=== PATIENT | female | born 1955 | race Caucasian/White ===

== ENCOUNTER 2018-11-16 08:42 | Outpatient (REF) | payer MEDICAID, SELFPAY ==
[2018-11-16 20:09] LABS: ALT 24 U/L (12-78); AST 13 U/L (15-37); Albumin 3.9 g/dL (3.4-5.0); Alkaline Phosphatase 70 U/L (46-116); Anion Gap 7.9 mmol/L (3-11); BUN 16 mg/dL (7-18); Bilirubin, Total 0.3 mg/dL (0.2-1.0); CO2 29.1 mmol/L (21.0-32.0); CREATININE 0.95 mg/dL (0.55-1.02); Calcium 9.4 mg/dL (8.5-10.1); Chloride 104 mmol/L (98-107); Cholesterol 147 mg/dL (50-200); Estimated GFR 59.41 (mL/min/1.73m2); Glucose 104 mg/dL (70-100); HDL Cholesterol 51 mg/dL (40-60); LDL CHOLESTEROL 71 mg/dL (<100); Potassium 4.6 mmol/L (3.5-5.1); Sodium 141 mmol/L (136-145); TSH 4.06 uIU/mL (0.358-3.74); Total Protein 7.2 g/dL (6.4-8.2); Triglyceride 166 mg/dL (30-150)
[2018-11-16 20:13] LABS: Hemoglobin A1C 6.1 % (4.5-6.2)
== END 2018-11-16 09:02 ==
LOC: NCHCN 08:42
PROVIDERS: PCP Internal Medicine; Visit Provider Nurse Practitioner Family
DX: I10 Essential (primary) hypertension (principal); E78.5 Hyperlipidemia, unspecified; E03.9 Hypothyroidism, unspecified
CPT/HCPCS: 80053; 80061; 83721; 83036; 84443

== ENCOUNTER 2019-05-04 02:40 | Outpatient (CLI) | payer MEDICAID, SELFPAY ==
--- NOTE | 2019-05-04 12:48 | DI.MAMMO_ITS ---
EXAM: MAMMO SCREENING CLINICAL HISTORY: SCREENING Z12.39. TECHNIQUE: Mammograms were interpreted according to the usual protocol including computer analysis w [employer] CAD system, tomosynthesis and C-view imaging. COMPARISON: Current examination compared with previous examinations including December 2017 FINDINGS: Breasts are of moderate density with fairly symmetrical distribution of fibroglandular tissue. No dom inant mass or clumped microcalcification is identified in either breast. Current examination compared with previous examinations including December 2017 and there has been no gross interval change in appear ance in comparison with the previous studies. IMPRESSION: No specific evidence of malignancy at this time. Routine screening examinations are suggested at year ly intervals in this age group according to the ACS/ACR guidelines. Category 1, breast density catego ry B. BI-RADS Cat 1 - Negative Breast Density - Category B - Scattered areas of fibroglandular density
== END 2019-05-04 03:00 ==
PROVIDERS: PCP Nurse Practitioner Family; Visit Provider Nurse Practitioner Family
DX: Z12.31 Encounter for screening mammogram for malignant neoplasm of breast (principal)
CPT/HCPCS: 77063; 77067

== ENCOUNTER 2020-05-15 08:57 | Outpatient (REF) | payer MEDICAID, SELFPAY ==
[2020-05-15 22:45] LABS: Anion Gap 5.9 mmol/L (3-11); BUN 12 mg/dL (7-18); CO2 29.1 mmol/L (21.0-32.0); CREATININE 0.83 mg/dL (0.55-1.02); Calcium 9.1 mg/dL (8.5-10.1); Chloride 106 mmol/L (98-107); Glucose 111 mg/dL (74-106); Potassium 4.4 mmol/L (3.5-5.1); Sodium 141 mmol/L (136-145); TSH (W/Ref FT4) 3.34 uIU/mL (0.36-3.74)
== END 2020-05-15 09:17 ==
LOC: NCHCN 08:57
PROVIDERS: PCP Nurse Practitioner Family; Visit Provider Nurse Practitioner Family
DX: E03.9 Hypothyroidism, unspecified (principal); I10 Essential (primary) hypertension
CPT/HCPCS: 80048; 84443

== ENCOUNTER 2020-11-13 09:21 | Outpatient (REF) | payer MEDICARE, MEDICAID, SELFPAY ==
[2020-11-13 15:18] LABS: BUN 13 mg/dL (7-18); Calcium 9.5 mg/dL (8.5-10.1); Calculated LDL 85 mg/dL (<100); Chloride 101 mmol/L (98-107); Cholesterol 152 mg/dL (<200); Estimated GFR 55.64 (mL/min/1.73m2); Glucose 111 mg/dL (74-106); HDL Cholesterol 44 mg/dL (40-60); Hemoglobin A1C 5.9 % (<5.7); Potassium 4.7 mmol/L (3.5-5.1); Sodium 138 mmol/L (136-145); Triglyceride 119 mg/dL (<150)
== END 2020-11-13 09:22 | disposition home or self-care (01) ==
LOC: NCHCN 09:21
PROVIDERS: PCP Nurse Practitioner Family; Visit Provider Nurse Practitioner Family
DX: R73.03 Prediabetes (principal); I10 Essential (primary) hypertension
CPT/HCPCS: 80048; 80061; 83036

== ENCOUNTER 2020-12-04 02:23 | Outpatient (CLI) | payer MEDICARE, MEDICAID, SELFPAY ==
--- NOTE | 2020-12-04 08:00 | DI.MAMMO_ITS ---
Exam(s) MAMMO SCREENING EXAM: MAMMO SCREENING CLINICAL HISTORY: SCREENING, Z12.39 TECHNIQUE: Bilateral full field digital CC and MLO mammographic images were obtained with 3D tomosyn thesis and utilizing computer aided detection (CAD). COMPARISON: Available for comparison. FINDINGS: Masses/Architectural Distortion: There is an asymmetry in the outer right breast on the craniocaudad view. There is also an asymmetry in the upper posterior right breast on the MLO view. Microcalcifications: No suspicious pleomorphic-type are seen. Skin Thickening/Nipple Retraction: None. IMPRESSION: 1. Two asymmetries in the right breast as described above. 2. Further evaluation with spot compression views is recommended. Ultrasound may be indicated at sean t time. BI-RADS Category 0 - Assessment Incomplete: Need additional imaging evaluation Breast Density - Category B - Scattered areas of fibroglandular density Breast density category C or D implies that the patient has dense breast tissue. Dense breast tissue is very common and is not abnormal but dense breast tissue can make it harder to find cancer on a ma mmogram. Also, dense breast tissue may increase their breast cancer risk. This information about the result of the mammogram report was provided to the patient to raise their awareness. Use this report when you speak with the patient about their risks for breast cancer, which includes their family hist ory. At that time, you may recommend for more screening tests (Ultrasound or MRI) as they might be us eful based on their risk. A negative radiographic report should not delay biopsy if a dominant or clinically suspicious mass is present. Up to ten percent of cancers are not identified on mammography. A negative report may reinforce clinical impression. Adenosis and dense breasts may obscure an underlying neoplasm. False positive reports average 6 to 10%. Patient will receive a letter notifying them of these results.
== END 2020-12-04 02:43 ==
PROVIDERS: PCP Nurse Practitioner Family; Visit Provider Nurse Practitioner Family
DX: Z12.31 Encounter for screening mammogram for malignant neoplasm of breast (principal); R92.8 Other abnormal and inconclusive findings on diagnostic imaging of breast
CPT/HCPCS: 77063; 77067

== ENCOUNTER 2020-12-06 04:37 | Outpatient (CLI) | payer MEDICARE, MEDICAID, SELFPAY ==
--- NOTE | 2020-12-06 | DI.MAMMO_ITS ---
Exam(s) MG MAMMO SCREEN CALL BACK UNI US BREAST RT LIMITED EXAM: MG MAMMO SCREEN CALL BACK UNI and U/S breast RT limited CLINICAL HISTORY: F/U MAMMO, TWO ASYMMETRIES RT BREAST. TECHNIQUE: Craniocaudal and mediolateral oblique Full Field Digital Mammography views of the right b reast with Computer Aided Diagnosis followed by Tomosynthesis and right breast ultrasound. COMPARISON: Priors available for comparison. FINDINGS: Mammography/Tomosynthesis: Masses/Architectural Distortion: The asymmetry in the outer right breast on the CC view is less promi nent. The asymmetry in the upper right breast on the MLO view is no longer visualized. No suspiciou s masses or areas of architectural distortion are identified. Microcalcifictions: No suspicious pleomorphic-type are seen. Skin Thickening/Nipple Retraction: None. Right breast US: Echotexture: Normal appearance of the glandular tissue. Shadowing: No suspicious foci. Cyst: None. Solid lesions: None seen. Ductal dilation: None. IMPRESSION: 1. No evidence of malignancy is noted. 2. A six-month follow-up right mammogram is recommended for re-evaluation. 3. The findings were discussed with the patient on the date of the examination. BI-RADS Category 3 - 6 month - Probably Benign Finding: Recommend follow-up imaging in 6 months Breast Density - Category B - Scattered areas of fibroglandular density Breast density Category C or D implies that the patient has dense breast tissue. Dense breast tissue can make it harder to find cancer on a mammogram. Dense breast tissue is also associated with an incr eased risk of breast cancer. This information about the result of the mammogram report was provided to the patient to raise their awareness. Use this report when you speak with the patient about their risks for breast cancer, which includes their family history. At that time, you may recommend additional screening tests (Ultrasoun d or MRI) as these tests may add significant information. A negative radiographic report should not delay biopsy if a dominant or clinically suspicious mass is present. Up to ten percent of cancers are not identified on mammography. A negative report may reinforce clinical impression. Adenosis and dense breasts may obscure an underlying neoplasm. False positive reports average 6 to 10%. Patient will receive a letter notifying them of these results.
== END 2020-12-06 04:57 ==
PROVIDERS: PCP Nurse Practitioner Family; Visit Provider Nurse Practitioner Family
DX: Z12.31 Encounter for screening mammogram for malignant neoplasm of breast (principal); R92.8 Other abnormal and inconclusive findings on diagnostic imaging of breast; N64.59 Other signs and symptoms in breast
CPT/HCPCS: 76642; 77063; 77067

== ENCOUNTER → 2021-01-22 10:22 | Outpatient (BNVA) | payer MEDICARE, MEDICAID, SELFPAY | PROVIDERS: PCP Nurse Practitioner Family; Referring Provider Nurse Practitioner Family; Visit Provider Surgery | DX: R19.5 Other fecal abnormalities (principal); I10 Essential (primary) hypertension | CPT/HCPCS: 99203; 99242 ==

== ENCOUNTER 2021-01-24 07:59 | Day surgery (SDC) | payer MEDICARE, MEDICAID, SELFPAY ==
[2021-01-24 08:12] VITALS: BP 140/86; PULSE 76; RESP 17; TEMP 36.8; O2SAT 98
--- NOTE | 2021-01-24 08:36 | COLE_ITS ---
Date of service: 01/24/21 Time of Service: 08:36 Colonoscopy Report Date of procedure: 01/24/21 Prep: Miralax/Dulcolax Retraction Time: 15 Procedure Description: After informed consent was obtained the patient was taken to the procedure room and placed in a left decubitous position. Monitors were applied and a time out was done. The patients name, date of , procedure, allergies to medications and metal in their body was reviewed. The patient was then sedated. Once sedated and comfortable a rectal exam was done. External exam was normal. Internal exam revealed a normal sphincter tone and no palpable ma sses. The scope was then introduced and retrofelexed. no internal hemorrhoids were identified. The scope was then advanced to the cecum without difficulty. The TI and appendiceal orifice were identified. The prep was good 15. The scope was then slowly retracted over 15 minutes back into the rectum. she does have diverticular disease that does extend all the way over to the right c olon. The majority of the diverticulum Are concentrated in the sigmoid colon and she does have severe diverticula with multiple and numerous pockets. There is no signs of bleeding or infection. She has 2 small polyps in the rectum 1 is a less than 5 mm flat polyp that is removed with cold cold forcep. The other is a 1 cm flat polyp that is removed with a hot polypectomy forcep. All specimen i s retrieved and no bleeding is noted. Random biopsies also done at 70 cm and in the rectum.. The patient was woken up and taken back to Same day surgery in stable condition. The patient tolerated the procedure well and there were no immediate complications. Follow up: The patient should follow up in 5 years - path pd, unless they develop changes in bowel habits or other new gastrointestinal complaints.
[2021-01-24] MEDS: Lactated Ringers 1,000 ML 80 ML IV (08:52)
[2021-01-24 09:02] LABS: Abs Immature Grans 0.02 10^3/uL (0.0-0.06); Absolute Basophil Count 0.02 10^3/uL (0.0-0.2); Absolute Eosinophil Count 0.17 10^3/uL (0.0-0.7); Absolute Lymphocyte Count 1.22 10^3/uL (1.2-3.4); Absolute Monocyte Count 0.51 10^3/uL (0.1-0.8); Basophils % 0.3; Eosinophils % 2.7; HCT 41.9 % (36.0-46.0); HGB 14.1 g/dL (11.2-15.7); Immature Grans % 0.3; Lymphocytes % 19.6; MCH 31.3 pg (27.0-33.0); MCHC 33.7 % (32.0-36.0); MCV 93.1 fL (80-95); MPV 9.3 fL (8.0-11.0); Monocytes % 8.2; Neutrophils % 68.9; Nucleated RBC 0 %; Platelet Count 231 10^3/uL (130-400); RDW 12.1 % (11.7-14.6); RDW-SD 41.4 fL; WBC 6.24 10^3/uL (4.4-10.8)
--- NOTE | 2021-01-24 09:16 | W.ANESPRE ---
General Info Date of Service Date Performed: 01/24/21 Height: 5 ft 4 in Weight: 81.5 kg Body Mass Index (BMI): 30.8 Surgical Procedure: Operation Date: 01/24/21 09:05 Proposed Procedures Side Surgeon p Colonoscopy POSSIBLE POLYPECTOMY Bertha Greer, Meds Allergies and Home Medications Allergies Allergy/AdvReac Type Severity Reaction Status Date / Time lisinopril AdvReac Intermediate cough Verified 01/24/21 08:21 niacin AdvReac Intermediate muscle Verified 01/24/21 08:21 aches Home Medication Medication Instructions Recorded ascorbic acid (vitamin C) [Vitamin 500 mg PO DAILY 12/07/12 C] rosuvastatin [Crestor] 20 mg PO DAILY 05/29/16 albuterol sulfate 90 mcg/actuation 2 puff INHALATION Q6H PRN 01/09/21 aerosol inhaler levothyroxine 75 mcg capsule 75 mcg PO DAILY 01/09/21 triamterene 37.5 1 cap PO DAILY 01/09/21 mg-hydrochlorothiazide 25 mg capsule bisacodyl 5 mg tablet,delayed 5 mg PO ONCE #4 tab 01/22/21 release polyethylene glycol 3350 17 238 g PO ONCE #238 g 01/22/21 gram/dose oral powder Current Visit Medications: Current Medications Generic Name Dose Route Start Last Admin Trade Name Freq PRN Reason Stop Dose Admin Hyoscyamine Sulfate 0.125 mg 01/23/21 14:22 Hyoscyamine 0.125 Mg Sl/Oral/Chew SL DIRECTED PRN Ringer's Solution 1,000 mls @ 80 mls/hr 01/24/21 06:00 01/24/21 08:52 IV 02/22/21 23:59 80 mls/hr INFUSION SHEELA Administration IV Miscellaneous Supplies 1 each 01/24/21 06:00 Iv Access IV 02/22/21 23:59 DIRECTED SHEELA Ondansetron HCl 4 mg 01/23/21 14:22 Ondansetron 4 Mg/2 Ml Vial IVP Q4H PRN PRN Nausea / Vomiting Sodium Chloride 0 ml 01/24/21 06:00 Normal Saline Flush 10 Ml Syr IV 02/22/21 23:59 PRN PRN Sodium Chloride 0 ml 01/24/21 06:00 Normal Saline 10 Ml Vial IJ 02/22/21 23:59 DIRECTED PRN Sterile Water 0 ml 01/24/21 06:00 Water,Injection,Sterile 10 Ml Vial IJ 02/22/21 23:59 DIRECTED PRN [facility] Medical History Medical History Abnormal mammogram of right breast Fecal occult blood test positive Hyperlipidemia Hypertension Hypothyroidism CABRERA (obstructive sleep apnea) Positive colorectal cancer screening using Cologuard test Prediabetes Surgical History Surgical History Ligation of fallopian tube 1985 Open Carpal Tunnel release Bilateral ? 2004 Tobacco Smoking/Tobacco Use Status: Former Tobacco Use Alcohol Alcohol Intake: never Substance Use Substance use: Never Substance use type: does not use Vital Signs and Lab Results Vital Signs Most Recent Vital Signs in EMR: Most Recent Vital Signs Temp Pulse Resp BP Pulse Ox 36.8 C 76 17 140/86 98 01/24/21 08:12 01/24/21 08:12 01/24/21 08:12 01/24/21 08:12 01/24/21 08:12 Lab Results Result Diagrams: 01/24/21 08:55 Blood Type / Crossmatch: No Data to Display Complete Blood Count: White Blood Count 6.24 10^3/uL (4.4-10.8) 01/24/21 08:55 01/24/21 Red Blood Count 4.50 10^6/uL (3.93-5.22) 01/24/21 08:55 01/24/21 Hemoglobin 14.1 g/dL (11.2-15.7) 01/24/21 08:55 01/24/21 Hematocrit 41.9 % (36.0-46.0) 01/24/21 08:55 01/24/21 Platelet Count 231 10^3/uL (130-400) 01/24/21 08:55 01/24/21 Complete Metabolic Panel: No Data to Display Liver Function Panel: No Data to Display Coagulation Panel: No Data to Display Cardiac Panel: No Data to Display Arterial Blood Gas: No Data to Display Venous Blood Gas: No Data to Display Pancreas Panel: No Data to Display Thyroid Panel: No Data to Display Infectious Disease: No Data to Display Blood Cultures: No Data to Display Toxicology Panel: No Data to Display Anesthesia Assessment and Plan Anesthesia History Personal History: No History of Anesthesia Complications Family History: No Family History of Anesthesia Complications Exercise Tolerance Exercise Tolerance: Metabolic Equivalents>4 Pertinent Negatives Pertinent Negatives: No Symptoms of GERD Cardiac & Pulmonary Exam Cardiac Exam: Normal S1/S2 Heart Sounds Pulmonary Exam: Clear Bilateral Breath Sounds Airway Exam Known Difficult Airway: No Mallampati Class: 2 Mouth Opening: Normal (> 3cm) Thyromental Distance: Less than 3 cm Neck Range of Motion: Full ROM Neck Circumference: Normal Teeth Condition: Edentulous ASA Classification ASA Score: ASA 2 Emergency Case?: No NPO Status NPO Status: NPO Clears >2 hours, Solids >8 hours Anesthesia Plan Resuscitation Status: Full Code Anesthesia Technique: General Anesthesia Airway Planned: Natural Airway Monitors Used: Standard Monitors
[2021-01-24 09:19] VITALS: BMI 30.8
[2021-01-24 10:10] VITALS: BP 126/75; PULSE 60; RESP 16; TEMP 36.3; O2SAT 96
--- NOTE | 2021-01-24 10:11 | PDOC.DSDIS_ITS ---
Discharge Plan Disposition Patient Disposition: HOME Condition: Good Discharge Details Reason For Visit: colon scope Attending Provider: Bretha Greer Primary Care Provider: Mira Colbert Home Meds and New Rx's Prescriptions: Continued ascorbic acid (vitamin C) [Vitamin C] 500 MG tablet 500 mg PO DAILY RF: 0 levothyroxine 75 mcg capsule 75 mcg PO DAILY RF: 0 albuterol sulfate [ProAir HFA] 90 mcg/actuation HFA aerosol inhaler 2 puff inhalation Q6H PRNRF: 0 triamterene-hydrochlorothiazid 37.5-25 mg capsule 1 cap PO DAILY RF: 0 rosuvastatin [Crestor] 20 MG tablet 20 mg PO DAILY RF: 0 Discontinued polyethylene glycol 3350 17 gram/dose powder 238 g PO ONCE Qty: 238 RF: 0 bisacodyl [Dulcolax (bisacodyl)] 5 mg tablet,delayed release (DR/EC) 5 mg PO ONCE Qty: 4 RF: 0 Discharge Instructions Additional Instructions: DSU Colonoscopy Post- Op Instructions Instructions for Everyone who is given Anesthesia: For your safety, please do the following for the next twenty-four (24) hours: *Do Not operate a motor vehicle (car, truck, motorcycle, etc.) *Do Not drink alcoholic beverages or use any recreational drugs for the first 24 hours or while taking pain medications. The medications in your body may have a reaction that can be dangerous. *Do Not make any important decisions or sign any important papers. Findings: severe diverticular Dx x1 polyp-we will send a letter in 3 to 4 weeks with the results pathology and we may want to repeat the colonoscopy Follow up: Probable repeat colonoscopy in 3 to 5 years time 1. No lifting over 20 pounds or strenuous activity for the first 24 hours after your procedure. After 24 hours there are no restrictions on your activity but you may feel fatigued for a few days. 2. After you arrive home you may have a light meal and return to your normal diet as you can tolerate it without feeling sick to your stomach. 3. You may have a bloated, gaseous feeling in your belly (abdomen) after a colonoscopy. Passing gas and belching will help. Walking or lying down on your left side with your knees flexed may relieve the discomfort. Call the office at [phone] (Office) or [phone] (Hospital) right away if you notice any of the following: a.Vomiting of blood or ?coffee ground stools?. b.Rectal bleeding 1Tbsp, blood clots or continuous bleeding. c.Severe belly (abdominal) pain. d.A hard distended belly (abdomen) and an inability to pass gas. 4. Please don?t expect to have a normal BM (bowel movement) for 2-3 days after your procedure. 5. If there are questions regarding the findings of your procedure, please contact your doctor 6. If you are unable to contact your doctor with a problem, contact the hospital at [phone]. 7. Continue all your regular medications unless directed otherwise. I understand the above instructions and have no questions. Signature of Patient or Adult Escort Name of Responsible Adult Escort Signature of Nurse Date/Time Stand Alone Forms: Anesthesia Discharge Inst. Activity:: see above Diet:: see above Discharge Orders Discharge Orders: Discharge Order (Routine); Ordered 01/23/21 Ordered By: Bertha Greer DS: Diagnosis Discharge Diagnosis (1) Diverticula of colon: Status: Acute (2) Adenomatous polyp of rectum: Status: Acute
--- NOTE | 2021-01-24 10:22 | W.ANESPOSTOP ---
Postoperative Evaluation Date, Time and Location Date Performed: 01/24/21 Time Performed: 10:22 Patient Location: Day Surgery Unit Vital Signs Most Recent Imported Vital Signs: Most Recent Vital Signs Temp Pulse Resp BP Pulse Ox 36.3 C L 60 16 126/75 96 01/24/21 10:10 01/24/21 10:10 01/24/21 10:10 01/24/21 10:10 01/24/21 10:10 Pain Score Most Recent Pain Score: Most Recent Pain Score Pain Level 0 01/24/21 10:10 Assessment Mental Status: Awake (Alert & Oriented to Patient Baseline) Airway and Respiratory Function: Patent airway with normal (patient baseline) respiratory exam Cardiovascular Function: Hemodynamically Stable Hydration Status: Adequately Hydrated Nausea & Vomiting: No Nausea or Vomiting Pain: Pt. Denies Any Pain Peripheral Nerve Block: Patient did not receive a nerve block
[2021-01-24 10:40] VITALS: BP 131/78; PULSE 72; RESP 15; TEMP 36.4; O2SAT 99
--- NOTE | 2021-01-24 10:56 | BOWEL_PTH ---
PATIENT: Eladia Beal LOC: [facility] U#:[id number] AGE/SX: 65/F ROOM: RE01/24/[address]: Bertha Greer : 1955 BED: DIS: 01/24/2021 SPEC #: [id number] RECD: 01/24/21 11:56 STATUS: JERRY REQ #: [id number] HAILE: 01/24/21 10:[address]: Bertha Greer DEPT: Surgical Specimen RECD BY: Kelly Cam ENTERED: 01/24/21 11:57 SP TYPE: Bowel OTHR DR: Mira Colbert Tissues: 1 - BIOPSY BOWEL 2 - BIOPSY BOWEL Procedures: GROSS AND MICRO LEVEL 4 Comments: [id number]
== END 2021-01-24 10:46 | disposition home or self-care (01) ==
PROVIDERS: PCP Nurse Practitioner Family; Visit Provider Surgery
PROC: 0DJD8ZZ Inspection of Lower Intestinal Tract, Via Natural or Artificial Opening Endoscopic (ICD-10-PCS; CPT 45378; principal; 2021-01-24 09:00)
DX: Z12.11 Encounter for screening for malignant neoplasm of colon (principal); K57.30 Diverticulosis of large intestine without perforation or abscess without bleeding; I10 Essential (primary) hypertension; G47.33 Obstructive sleep apnea (adult) (pediatric); K62.1 Rectal polyp
CPT/HCPCS: 45384; 45380; 88305; 85025

== ENCOUNTER 2021-05-14 12:14 | Outpatient (REF) | payer MEDICARE, MEDICAID, SELFPAY ==
[2021-05-14 21:33] LABS: Anion Gap 8.8 mmol/L (3-11); BUN 20 mg/dL (7-18); CO2 30.2 mmol/L (21.0-32.0); Calcium 9.3 mg/dL (8.5-10.1); Chloride 99 mmol/L (98-107); Estimated GFR 55.64 (mL/min/1.73m2); Glucose 119 mg/dL (74-106); Potassium 4.3 mmol/L (3.5-5.1); Sodium 138 mmol/L (136-145); TSH (W/Ref FT4) 2.91 uIU/mL (0.36-3.74)
== END 2021-05-14 12:15 | disposition home or self-care (01) ==
LOC: NCHCN 12:14
PROVIDERS: PCP Nurse Practitioner Family; Visit Provider Physician Assistant
DX: I10 Essential (primary) hypertension (principal)
CPT/HCPCS: 80048; 84443

== ENCOUNTER 2021-08-20 01:34 | Outpatient (CLI) | payer MEDICARE, MEDICAID, SELFPAY ==
--- NOTE | 2021-08-20 10:18 | DI.MAMMO_ITS ---
Exam(s) MG MAMMO DIAGNOSTIC UNI EXAM: MG MAMMO DIAGNOSTIC UNI CLINICAL HISTORY: 6-MO F/U ABNL MAMMO, RT BREAST TECHNIQUE: Mammograms were interpreted according to the usual protocol including computer analysis w ith CAD system, tomosynthesis and C-view imaging. COMPARISON: FINDINGS: Right breast mammogram was obtained to follow questionable area of asymmetric density seen on prior e xamination November 2020. There has been no interval change in appearance. No new mass or clumped microc alcification identified in the right breast. IMPRESSION: No specific evidence of malignancy at this time. I would suggest that routine screening examinations resume with a bilateral mammogram in 6 months. BI-RADS Category 3 - 6 month - Probably Benign Finding: Recommend follow-up mammography in 6 months Breast Density - Category B - Scattered areas of fibroglandular density
== END 2021-08-20 01:54 ==
PROVIDERS: PCP Nurse Practitioner Family; Visit Provider Nurse Practitioner Family
DX: Z12.31 Encounter for screening mammogram for malignant neoplasm of breast (principal); R92.8 Other abnormal and inconclusive findings on diagnostic imaging of breast
CPT/HCPCS: 77061; 77065; G0279

== ENCOUNTER → 2022-01-20 00:29 | Outpatient (CLI) | payer MEDICARE, MEDICAID, SELFPAY ==
--- NOTE | 2022-01-20 08:25 | DI.MAMMO_ITS ---
Exam(s) MAMMO SCREENING EXAM: MAMMO SCREENING CLINICAL HISTORY: SCREENING FOR BREAST CANCER, Z12.39 TECHNIQUE: Mammograms were interpreted according to the usual protocol including computer analysis w [employer] CAD system, tomosynthesis and C-view imaging. COMPARISON: 2012 through 2021 FINDINGS: The breasts are composed of mainly fatty density , Breast Density category A. No suspicious masses or suspicious microcalcifications are seen. No skin thickening or abnormal axillary lymph nodes are seen. There has been no significant change from prior exams. IMPRESSION: BI-RADS Category 1, Negative mammogram Yearly screening mammography is recommended. Breast Density - Category A, fatty density. A negative radiographic report should not delay biopsy if a dominant or clinically suspicious mass is present. Up to ten percent of cancers are not identified on mammography. A negative report may reinforce clinical impression. Adenosis and dense breasts may obscure an underlying neoplasm. False positive reports average 6 to 10%. Patient will receive a letter notifying them of these results.
== END ==
PROVIDERS: PCP Nurse Practitioner Family; Visit Provider Physician Assistant
DX: Z12.31 Encounter for screening mammogram for malignant neoplasm of breast (principal)
CPT/HCPCS: 77063; 77067

== ENCOUNTER 2022-05-13 21:39 | Outpatient (REF) | payer MEDICARE, SELFPAY ==
[2022-05-13 21:26] LABS: Hemoglobin A1C 5.9 % (<5.7)
[2022-05-13 21:27] LABS: Anion Gap 6.4 mmol/L (3-11); BUN 18 mg/dL (7-18); CO2 31.6 mmol/L (21.0-32.0); Calcium 9.9 mg/dL (8.5-10.1); Chloride 101 mmol/L (98-107); Estimated GFR 62.13 (mL/min/1.73m2); Glucose 101 mg/dL (74-106); Potassium 4.5 mmol/L (3.5-5.1); Sodium 139 mmol/L (136-145); TSH (W/Ref FT4) 2.63 uIU/mL (0.36-3.74)
== END 2022-05-13 21:40 | disposition home or self-care (01) ==
LOC: NCHCN 21:39
PROVIDERS: PCP Nurse Practitioner Family; Visit Provider Physician Assistant
DX: E03.9 Hypothyroidism, unspecified (principal); I10 Essential (primary) hypertension; R73.03 Prediabetes
CPT/HCPCS: 80048; 83036; 84443

== ENCOUNTER → 2023-04-13 01:41 | Outpatient (CLI) | payer MEDICARE, SELFPAY ==
--- NOTE | 2023-04-13 | DI.DEXA_ITS ---
Exam(s) XR DEXA BONE DENSITY W/WO KALLI EXAM: XR DEXA BONE DENSITY W/WO KALLI CLINICAL HISTORY: MENOPAUSAL Z78.0 SCREENING FOR OSTEOPOROSIS TECHNIQUE: H[employer] Horizon C densitometer analysis of left hip, lumbar spine and left forearm. Lat eral survey image of the thoracic and lumbar spine. COMPARISON: No exams were available for comparison FINDINGS: Lateral view of the thoracic and lumbar spine shows no evidence of compression fractures. Bone mineral density measurements of the lumbar spine correspond to a total T-score of 0.5 Bone mineral density measurements of the left hip correspond to a total T-score of -1.1. The femora l neck T-score is -1.3, in the osteopenic range.. Theleft forearm bone mineral density measurements correspond to a T-score of the distal 3rd of -2.2, in the osteopenic range.. IMPRESSION: Normal bone mineral density of the lumbar spine. Osteopenia of the hip and forearm.
--- NOTE | 2023-04-13 08:48 | DI.MAMMO_ITS ---
Exam(s) MAMMO SCREENING EXAM: MAMMO SCREENING CLINICAL HISTORY: SCREENING MAMMO FOR BREAST CANCER Z12.39 TECHNIQUE: Mammograms were interpreted according to the usual protocol including computer analysis w [employer] CAD system, tomosynthesis and C-view imaging. COMPARISON: 2015 through 2021 FINDINGS: The breasts are composed of mainly fatty density , Breast Density category A. No suspicious masses or suspicious microcalcifications are seen. No skin thickening or abnormal axillary lymph nodes are seen. There has been no significant change from prior exams. IMPRESSION: BI-RADS Category 1, Negative mammogram Yearly screening mammography is recommended. Breast Density - Category A, fatty density. A negative radiographic report should not delay biopsy if a dominant or clinically suspicious mass is present. Up to ten percent of cancers are not identified on mammography. A negative report may reinforce clinical impression. Adenosis and dense breasts may obscure an underlying neoplasm. False positive reports average 6 to 10%. Patient will receive a letter notifying them of these results.
== END ==
PROVIDERS: PCP Nurse Practitioner Family; Visit Provider Physician Assistant
DX: Z78.0 Asymptomatic menopausal state (principal); Z13.820 Encounter for screening for osteoporosis; Z12.31 Encounter for screening mammogram for malignant neoplasm of breast; M81.0 Age-related osteoporosis without current pathological fracture
CPT/HCPCS: 77063; 77067; 77080

== ENCOUNTER 2023-06-30 12:42 | Outpatient (REF) | payer MEDICARE, SELFPAY ==
[2023-06-30 20:24] LABS: ALT 19 U/L (14-59); AST 16 U/L (15-37); Albumin 4.4 g/dL (3.4-5.0); Alkaline Phosphatase 58 U/L (46-116); Anion Gap 8.3 mmol/L (3-11); BUN 14 mg/dL (7-18); Bilirubin, Total 0.4 mg/dL (0.2-1.0); CO2 29.7 mmol/L (21.0-32.0); CREATININE 0.9 mg/dL (0.55-1.02); Calcium 10.2 mg/dL (8.5-10.1); Chloride 103 mmol/L (98-107); Estimated GFR 70.07 (mL/min/1.73m2); Glucose 104 mg/dL (74-106); Potassium 4.1 mmol/L (3.5-5.1); Sodium 141 mmol/L (136-145); TSH (W/Ref FT4) 3.61 uIU/mL (0.36-3.74)
[2023-06-30 20:30] LABS: COMMENT (LAB VIEW ONLY) 31.72 mg/dL; Microalb ug/mg Crea 14.2 ug/mg Cr
== END 2023-06-30 12:43 | disposition home or self-care (01) ==
LOC: NCHCN 12:42
PROVIDERS: PCP Physician Assistant; Visit Provider Physician Assistant
DX: E11.9 Type 2 diabetes mellitus without complications (principal)
CPT/HCPCS: 80053; 82043; 82570; 84443

== ENCOUNTER 2024-06-14 08:38 | Emergency (ER) | payer MEDICARE, SELFPAY ==
[2024-06-14 08:42] VITALS: BP 145/86; PULSE 73; RESP 18; TEMP 36; O2SAT 96
--- NOTE | 2024-06-14 08:45 | DI.RAD_ITS ---
Exam(s) XR ANKLE RT COMPLETE XR TIB/FIB RT EXAM: XR ANKLE RT COMPLETE CLINICAL HISTORY: Injury. TECHNIQUE: 2D digital imaging was performed. Three views. COMPARISON: CR XR TIB/FIB RT from 06/14/2024 FINDINGS: BONES: Nondisplaced fractures seen extending transversely through the lateral malleolus. No visible medial malleolar fracture. No fractures noted more superiorly in the leg. No bony destructive lesio n is seen. Small heel spurs. JOINTS: The ankle mortise is normally aligned. The knee is unremarkable. SOFT TISSUE: Swelling around lateral malleolus. IMPRESSION: Nondisplaced fracture through the lateral malleolus. No additional abnormalities identified. DATA REPOSITORY: RADIATION DOSE DELIVERED:
--- NOTE | 2024-06-14 08:53 | W.ED.GENAD ---
Discharge Plan Disposition Patient Disposition: Home Condition: Stable Discharge Details Clinical Impression: Ankle fracture, lateral malleolus, closed Primary Care Provider: Annette Angel ED Provider: Corinne Delacruz Home Meds and New Rx's Prescriptions: Continued ascorbic acid (vitamin C) [Vitamin C] 500 MG tablet 500 mg PO DAILY levothyroxine 75 mcg capsule 75 mcg PO DAILY albuterol sulfate [ProAir HFA] 90 mcg/actuation HFA aerosol inhaler 2 puff inhalation Q6H PRN rosuvastatin [Crestor] 20 MG tablet 20 mg PO DAILY amlodipine 5 mg tablet 5 mg PO DAILY Discharge Instructions Instructions: How to Use Crutches, Ankle Fracture ED, Splint Care ED Additional Instructions: You have broken the distal tip of your fibula which is also called the lateral malleolus of your ankle. Please wear the splint until follow-up with orthopedics. You may loosen the Bakari wrap if it seems to be too tight. Keep it elevated above the level of your heart while sitting or laying down. You may also use ice daily. Do not get the splint wet do not walk on the splint. Please take Tylenol or Ibuprofen with food every 4-6 hours as needed for pain and swelling. Follow up with orthopedics in 7-10 days. Return to ED sooner if any worsening pain, problems with blood circulation, severe pain not relieved by Tylenol or ibuprofen or concerns. Referrals: Andres Machuca MD [ [facility] STAFF PHYSICIAN] - 1 week Discharge Data Discharge Date/Time-TO BE ENTERED AT DEPARTURE: 06/14/24 10:04 HPI General Mode of arrival: wheelchair. Date/Time Provider Initiated Documentation: 06/14/24 08:47. Limitations to Documentation: no limitations. Information obtained by: patient, RN notes reviewed and old records reviewed. HPI Narrative: 68-year-old female approximately an hour ago had a mechanical fall after an inversion type injury to her right ankle while stepping into a hole. Patient fell to the ground. She reports that she heard a crack to her right ankle and was unable to put weight on it after the injury. Denies hitting her head knee pain or lower extremity pain or any other associated symptoms. Did not take any medications prior to arrival. She does have some swelling noted to her lateral malleolus and tenderness with palpation. Distal CMS is intact. She does have a past medical history of obstructive sleep apnea hypothyroidism hypertension prediabetes. She is alert and oriented x 3 no other complaints. Related Data Home Medications ?Medication ?Instructions ?Recorded ?Confirmed ascorbic acid (vitamin C) 500 mg 500 mg PO DAILY 12/07/12 06/14/24 tablet (Vitamin C) rosuvastatin 20 mg tablet (Crestor) 20 mg PO DAILY 05/29/16 06/14/24 albuterol sulfate 90 mcg/actuation 2 puff inhalation Q6H PRN 01/09/21 06/14/24 aerosol inhaler (ProAir HFA) levothyroxine 75 mcg capsule 75 mcg PO DAILY 01/09/21 06/14/24 amlodipine 5 mg tablet 5 mg PO DAILY 06/14/24 06/14/24 Allergies Allergy/AdvReac Type Severity Reaction Status Date / Time lisinopril AdvReac Intermediate cough Verified 06/14/24 08:46 niacin AdvReac Intermediate muscle Verified 06/14/24 08:46 aches General Stated Complaint: Orthopedic ROBERTH: 4 Review of Systems All systems reviewed & are unremarkable except as noted in HPI and below Constitutional Constitutional: Denies headache(s) ENT Ears, Nose, Mouth, and Throat: Denies headache(s) Musculoskeletal Musculoskeletal: Reports as per HPI, Reports arthralgias and Reports joint swelling Neurologic Neurologic: Denies headache(s) Exam Const General: cooperative, healthy appearing, comfortable, well developed and well groomed Nutritional Appearance: average body habitus Orientation: alert, awake and oriented x3 Extrem General: normal to inspection Right lower extremity: lower leg Details: normal to inspection, ankle Details: tenderness and swelling Details: laterally and foot Details: normal capillary refill and normal to inspection Left lower extremity: normal to inspection Course Vital Signs Vital signs: Vital Signs Temperature 36.0 C L 06/14/24 08:42 Pulse 73 06/14/24 08:42 Respiratory Rate 18 06/14/24 08:42 Blood Pressure 145/86 H 06/14/24 08:42 Pulse Oximetry 96 06/14/24 08:42 Temperature 36.0 C L 06/14/24 08:42 Temperature Source Oral 06/14/24 08:42 Pulse 73 06/14/24 08:42 Respiratory Rate 18 06/14/24 08:42 Blood Pressure 145/86 H 06/14/24 08:42 Blood Pressure Position Sitting 06/14/24 08:42 Pulse Oximetry 96 06/14/24 08:42 Oxygen Delivery Method Room Air 06/14/24 08:42 Oxygen Flow Rate 0 06/14/24 08:42 Pain Level 7 06/14/24 08:42 Procedures Orthopedic Splinting/Casting Injury #1: Side: right Lower Extremity Injury Location: ankle Lower Extremity Immobilizer: posterior splint, stirrup splint and Bakari wrap Other Orthopedic Equipment: crutches Additional Comments: Plaster posterior short leg and stirrup splint applied, circulation sensation movement intact close splint application. Cap refill less than 2 seconds. Discussed home care and splint care and follow-up with patient who verbalized understanding. Medical Decision Making 68-year-old female approximately an hour ago had a mechanical fall after an inversion type injury to her right ankle while stepping into a hole. Patient fell to the ground. She reports that she heard a crack to her right ankle and was unable to put weight on it after the injury. Denies hitting her head knee pain or lower extremity pain or any other associated symptoms. Did not take any medications prior to arrival. She does have some swelling noted to her lateral malleolus and tenderness with palpation. Distal CMS is intact. She does have a past medical history of obstructive sleep apnea hypothyroidism hypertension prediabetes. She is alert and oriented x 3 no other complaints. X-ray right ankle ordered. X-ray shows a nondisplaced fracture through the lateral malleolus. Will place patient in a posterior short leg splint and a stirrup splint will give crutches and instruct on nonweightbearing status until follow-up with orthopedics. Splint applied, see procedure note. Discussed splint care. Discussed RICE. Patient to follow-up with orthopedics placed on the care management list. Instructed to be nonweightbearing. Instructed to take Tylenol or ibuprofen as needed. May loosen the Bakari wrap if it seems too tight. To return for any problems with circulation or severe pain. This text was generated using Robert Applebaum MD system, please disregard any oddities of phrase or misspellings. Imaging Data Radiologic Study: Imaging: X-Ray Radiologist's impression: EXAM: XR ANKLE RT COMPLETE CLINICAL HISTORY: Injury. TECHNIQUE: 2D digital imaging was performed. Three views. COMPARISON: CR XR TIB/FIB RT from 06/14/2024 FINDINGS: BONES: Nondisplaced fractures seen extending transversely through the lateral malleolus. No visible medial malleolar fracture. No fractures noted more superiorly in the leg. No bony destructive lesion is seen. Small heel spurs. JOINTS: The ankle mortise is normally aligned. The knee is unremarkable. SOFT TISSUE: Swelling around lateral malleolus. IMPRESSION: Nondisplaced fracture through the lateral malleolus. No additional abnormalities identified. Quality:[facility] Related Social Needs: No Data to Display [facility] All Active Problems (Updated 06/14/24 @ 09:28 by Corinne Delacruz NP) Ankle fracture, lateral malleolus, closed (Acute) Colon polyp, hyperplastic (Acute ~12/2020) Diverticula of colon (Acute ~12/2020) continue all the way to right colon. severe diverticula of sigmoid colon Medical History CABRERA (obstructive sleep apnea) Hypothyroidism Hypertension Prediabetes Abnormal mammogram of right breast Positive colorectal cancer screening using Cologuard test Fecal occult blood test positive Surgical History History of colonoscopy (~12/2020) Ligation of fallopian tube 1985 Open Carpal Tunnel release Bilateral ? 2004 Family History Other Diabetes Heart disease Social History Smoking/Tobacco Use Status: Former Tobacco Use Quit Date: 07/02/20 Smoking risk assessment performed?: Yes Alcohol Intake: never Drug use: Never Substance use type: does not use Do you feel safe at home: Yes Do you feel safe in your relationship?: Yes
== END 2024-06-14 10:04 | disposition home or self-care (01) ==
PROVIDERS: Emergency Provider Registered Nurse Emergency; PCP Physician Assistant
DX: S82.61XA Displaced fracture of lateral malleolus of right fibula, initial encounter for closed fracture (principal); W19.XXXA Unspecified fall, initial encounter
CPT/HCPCS: 29515; 99283; 73590; 73610; 99284

== ENCOUNTER 2024-06-27 11:17 | Outpatient (CLI) | payer MEDICARE, SELFPAY ==
--- NOTE | 2024-06-27 08:53 | DI.RAD_ITS ---
Exam(s) XR ANKLE RT COMPLETE EXAM: XR ANKLE RT COMPLETE CLINICAL HISTORY: F/U FRACTURE. TECHNIQUE: 2D digital imaging was performed of the right ankle. Three images were obtained. AP, la teral and oblique views were obtained. COMPARISON: CR XR ANKLE RT COMPLETE from 06/14/2024 FINDINGS: BONES: The lucency previously seen through the lateral malleolus is not as well visualized. The late ral aspect of the fracture can still be seen on the oblique view. No new fracture is seen. No bony destructive lesion is seen. There is a small enthesophyte at the posterior calcaneus. There is a sma ll plantar calcaneal spur. JOINTS: The ankle mortise is normally aligned. SOFT TISSUE: There has been decrease in the soft tissue swelling seen laterally. IMPRESSION: No change in alignment of the nondisplaced distal right fibular fracture. DATA REPOSITORY: RADIATION DOSE DELIVERED:
== END 2024-06-27 11:18 | disposition home or self-care (01) ==
LOC: DIORS 15:32
PROVIDERS: PCP Physician Assistant; Referring Provider Physician Assistant; Visit Provider Student in an Organized Health Care Education/Training Program
DX: S82.64XA Nondisplaced fracture of lateral malleolus of right fibula, initial encounter for closed fracture; W01.0XXA Fall on same level from slipping, tripping and stumbling without subsequent striking against object, initial encounter
CPT/HCPCS: 99213; 73610

== ENCOUNTER 2024-08-09 15:53 | Outpatient (CLI) | payer MEDICARE, SELFPAY ==
--- NOTE | 2024-08-09 10:00 | DI.RAD_ITS ---
Exam(s) XR ANKLE RT COMPLETE EXAM: XR ANKLE RT COMPLETE CLINICAL HISTORY: F/U FRACTURE. TECHNIQUE: 2D digital imaging was performed of the right ankle. Three images were obtained. AP, la teral and oblique views were obtained. COMPARISON: CR XR ANKLE RT COMPLETE from 06/14/2024 CR XR ANKLE RT COMPLETE from 06/27/2024 FINDINGS: BONES: The distal fibular fracture appears nearly completely healed. There is a component of the fra cture visualized on the lateral view posteriorly. No new fractures present. There is an enthesophyt e at the posterior calcaneus. There is a small plantar calcaneal spur. No bony destructive lesion i s seen. JOINTS: The ankle mortise is normally aligned. SOFT TISSUE: There well corticated osseous densities again seen at the tip of the medial malleolus. IMPRESSION: Near complete healing of the distal fibular fracture. DATA REPOSITORY: RADIATION DOSE DELIVERED:
== END 2024-08-09 15:54 | disposition home or self-care (01) ==
LOC: DIORS 15:53
PROVIDERS: PCP Physician Assistant; Referring Provider Physician Assistant; Visit Provider Student in an Organized Health Care Education/Training Program
DX: S82.64XD Nondisplaced fracture of lateral malleolus of right fibula, subsequent encounter for closed fracture with routine healing (principal); X58.XXXD Exposure to other specified factors, subsequent encounter
CPT/HCPCS: 99213; 73610

== ENCOUNTER 2024-09-28 11:25 | Outpatient (REF) | payer MEDICARE, SELFPAY ==
[2024-09-28 20:18] LABS: ALT 20 U/L (14-59); AST 18 U/L (15-37); Albumin 4.3 g/dL (3.4-5.0); Alkaline Phosphatase 60 U/L (46-116); Anion Gap 7.5 mmol/L (3-11); BUN 11 mg/dL (7-18); Bilirubin, Total 0.49 mg/dL (0.2-1.0); CO2 28.5 mmol/L (21.0-32.0); CREATININE 0.9 mg/dL (0.55-1.02); Calcium 9.7 mg/dL (8.5-10.1); Chloride 106 mmol/L (98-107); Glucose 109 mg/dL (74-106); Potassium 4.2 mmol/L (3.5-5.1); Sodium 142 mmol/L (136-145); Total Protein 7.6 g/dL (6.4-8.2)
== END 2024-09-28 11:26 | disposition home or self-care (01) ==
LOC: NCHCN 11:25
PROVIDERS: PCP Physician Assistant; Visit Provider Physician Assistant
DX: E03.9 Hypothyroidism, unspecified (principal); I10 Essential (primary) hypertension
CPT/HCPCS: 80053; 84443

== ENCOUNTER 2024-10-19 01:17 | Outpatient (CLI) | payer MEDICARE, SELFPAY ==
--- NOTE | 2024-10-19 08:03 | DI.MAMMO_ITS ---
Exam(s) MAMMO SCREENING EXAM: MAMMO SCREENING CLINICAL HISTORY: SCREENING, Z12.31 TECHNIQUE: Mammograms were interpreted according to the usual protocol including computer analysis w [employer] CAD system, tomosynthesis and C-view imaging. COMPARISON: 2015 through 2022 FINDINGS: The breasts are composed of mainly fatty density , Breast Density category A. No suspicious masses or suspicious microcalcifications are seen. No skin thickening or abnormal axillary lymph nodes are seen. There has been no significant change from prior exams. IMPRESSION: BI-RADS Category 1, Negative mammogram Yearly screening mammography is recommended. Breast Density - Category A, fatty density. A negative radiographic report should not delay biopsy if a dominant or clinically suspicious mass is present. Up to ten percent of cancers are not identified on mammography. A negative report may reinforce clinical impression. Adenosis and dense breasts may obscure an underlying neoplasm. False positive reports average 6 to 10%. Patient will receive a letter notifying them of these results.
== END 2024-10-19 01:37 ==
LOC: DI 01:18
PROVIDERS: PCP Physician Assistant; Visit Provider Physician Assistant
DX: Z12.31 Encounter for screening mammogram for malignant neoplasm of breast (principal); R92.313 Mammographic fatty tissue density, bilateral breasts
CPT/HCPCS: 77063; 77067

== ENCOUNTER 2025-07-20 12:56 | Outpatient (REF) | payer MEDICARE, SELFPAY ==
[2025-07-20 19:38] LABS: TSH (W/Ref FT4) 3.20 uIU/mL (0.55-4.78)
[2025-07-20 19:49] LABS: ALT 8 U/L (10-49); AST 18 U/L (<34); Albumin 4.6 g/dL (3.2-5.0); Alkaline Phosphatase 56 U/L (46-116); Anion Gap 9.3 mmol/L (3-11); BUN 18 mg/dL (9-23); Bilirubin, Total 0.4 mg/dL (0.2-1.2); CO2 27.7 mmol/L (20.0-31.0); Calcium 9.7 mg/dL (8.3-10.6); Chloride 107 mmol/L (98-107); Cholesterol 160 mg/dL (<200); Glucose 109 mg/dL (74-106); HDL Cholesterol 70 mg/dL (>or=50); Potassium 4.9 mmol/L (3.5-5.1); Sodium 144 mmol/L (136-145); Total Protein 7.3 g/dL (5.7-8.2)
[2025-07-20 19:51] LABS: Microalb ug/mg Crea 8.9 ug/mg Cr
== END 2025-07-20 12:57 | disposition home or self-care (01) ==
LOC: NCHCN 12:56
PROVIDERS: PCP Physician Assistant; Visit Provider Physician Assistant
DX: E78.5 Hyperlipidemia, unspecified (principal); E03.9 Hypothyroidism, unspecified; E11.9 Type 2 diabetes mellitus without complications
CPT/HCPCS: 80053; 80061; 82043; 82570; 84443